=== PATIENT | female | born 1960 | race Caucasian/White ===

== ENCOUNTER 2021-10-02 14:35 | Emergency (ER) | payer MEDICARE, OTHER ==
[~2021-10-02] VITALS: Ht 162.6 cm; Wt 614.6 kg
[~2021-10-02 14:35] MED LIST: ATOM80CA PO; BUPR150T5 PO; QUET50TA PO
--- NOTE | 2021-10-02 14:55 | NUR ---
Patient is AOx4, restless c/o severe left foot/left ankle pains, mostly on lateral part of the foot, mild swelling seen, respiration:easy, pending MD evaluation.
--- NOTE | 2021-10-02 15:07 | NUR ---
[email or web address], medical screening exam in progress
--- NOTE | 2021-10-02 15:23 | NUR ---
X-ray neha [email or web address]. Patient refused x-rays until MD orders pains medicine. MD notified.
[2021-10-02] MEDS ORDERED: HYDROCODONE/APAP 5-325MG TABLET PO ONE (15:30)
[2021-10-02] MEDS ORDERED: HYDROCODONE/APAP 5-325MG TABLET ONE (15:40)
--- NOTE | 2021-10-02 16:16 | NUR ---
Immediately after taking the [place] tablet, patient was calmer, resting comfortably on gurney while intermittently using her personla elctronic device, NAD.
[2021-10-02] MEDS ORDERED: HYDR-3972 PO (17:03)
--- NOTE | 2021-10-02 17:17 | NUR ---
Crutches dispensed. Pt instructed on proper use of crutches. Patient able to demonstrate correct use of crutches, pending CT scan results.
--- NOTE | 2021-10-02 17:27 | NUR ---
Copies of all her radiologic tests' results were given to patient.
--- NOTE | 2021-10-02 17:28 | NUR ---
Patient discharged to home in stable condition. Written and verbal after care instructions given to patient. Patient verbalized understanding and compliance of instructions. Stressed follow up with primary doctor and orthopedic doctor or return to ER for worsening s/s.
== END 2021-10-02 17:27 | disposition home or self-care (01) ==
LOC: ER 14:35
DX: S92.202A Fracture of unspecified tarsal bone(s) of left foot, initial encounter for closed fracture (principal); W18.39XA Other fall on same level, initial encounter; Y93.K1 Activity, walking an animal; Y92.89 Other specified places as the place of occurrence of the external cause; F32.A Depression, unspecified; Z79.899 Other long term (current) drug therapy; M19.072 Primary osteoarthritis, left ankle and foot
CPT/HCPCS: 73610; 73630; 73700; A4663